=== PATIENT | female | born 1980 | race Two or more races ===

== ENCOUNTER 2017-12-02 13:07 | Emergency (ER) | payer SELFPAY ==
[2017-12-02 14:21] LABS: ADD MAN DIFF? NO
[2017-12-02 14:24] LABS: BASO # 0.1 x10^3/uL (0.0-0.2); BASO % 1 % (0-3); EOS # 0.1 x10^3/uL (0.0-0.7); EOS % 1 % (0-3); HEMATOCRIT 40.8 % (36.0-47.0); HEMOGLOBIN 13.6 g/dL (12.0-15.5); LYMPH # 2.7 x10^3/uL (1.0-4.8); LYMPH % 28 % (24-48); MEAN CORPUSCULAR HEMOGLOBIN 29 pg (25-35); MEAN CORPUSCULAR HGB CONC 33 g/dL (31-37); MEAN CORPUSCULAR VOLUME 87 fL (79-100); MONO # 0.7 x10^3/uL (0.0-1.1); MONO % 7 % (0-9); NEUT # 6.2 x10^3uL (1.8-7.7); NEUT % 64 % (31-73); PLATELET COUNT 303 x10^3/uL (140-400); RED CELL DISTRIBUTION WIDTH 14.2 % (11.5-14.5); WHITE BLOOD COUNT 9.7 x10^3/uL (4.0-11.0)
[2017-12-02 14:31] LABS: ANION GAP 10 (6-14); BLOOD UREA NITROGEN 8 mg/dL (7-20); CALCIUM 9.1 mg/dL (8.5-10.1); CARBON DIOXIDE 26 mmol/L (21-32); CHLORIDE 102 mmol/L (98-107); CREATININE 0.7 mg/dL (0.6-1.0); GFR 93.2; GLUCOSE 332 mg/dL (70-99); SODIUM 138 mmol/L (136-145)
[2017-12-02 14:37] LABS: ALBUMIN 3.3 g/dL (3.4-5.0); ALK PHOS 76 U/L (46-116); ALT (SGPT) 31 U/L (14-59); AST (SGOT) 11 U/L (15-37); DIRECT BILIRUBIN 0.1 mg/dL (0.0-0.2); LIPASE 181 U/L (73-393); TOTAL BILIRUBIN 0.2 mg/dL (0.2-1.0); TOTAL PROTEIN 6.9 g/dL (6.4-8.2)
[2017-12-02 14:40] LABS: TROPONINI < 0.017 ng/mL (0.000-0.055)
[2017-12-02] MEDS: MORPHINE SULFATE 4 MG/ML DISP.SYRIN. IV ×2 (15:00→17:00)
[2017-12-02] MEDS: IOHEXOL 300 MG/ML 100ML VIAL. IV (16:30)
[2017-12-02] MEDS ORDERED: CONTRAST GIVEN. MC (16:45)
[2017-12-02] MEDS: LIDO:MAALOX 1:1 20 ML SINGLE DOSE. PO (17:00)
[2017-12-02] MEDS: FAMOTIDINE 20 MG/2 ML VIAL IVP (17:00)
== END 2017-12-02 18:25 | disposition home or self-care (01) ==
LOC: ER 13:07
DX: R07.89 Other chest pain (principal); R10.13 Epigastric pain; R11.0 Nausea; E11.9 Type 2 diabetes mellitus without complications; Z98.890 Other specified postprocedural states; Z88.0 Allergy status to penicillin
CPT/HCPCS: 36415; 71045; 74177; 76705; 80048; 80076; 83690; 84484; 85025; 93005; 96374; 96375; 96376; 99285-25; J2270; Q9967; S0028